=== PATIENT | female | born 1945 | race Caucasian/White ===

== ENCOUNTER 2019-08-03 08:27 | Emergency (ER) | payer MEDICARE, MEDICAID, SELFPAY ==
[2019-08-03 08:29] VITALS: BP 151/86; PULSE 123; RESP 20; TEMP 36.5; O2SAT 98; BMI 21.4
[2019-08-03 08:44] VITALS: O2SAT 98
--- NOTE | 2019-08-03 08:48 | XRR_ITS ---
PROCEDURE INFORMATION: Exam: XR Lumbosacral Spine, 2 or 3 Views Exam date and time: 08/03/2019 9:15 AM Age: 74 years old Clinical indication: Low back pain; Patient HX: Lifting boxes and hurt back; Additional info: Low back pain, nontraumatic TECHNIQUE: Imaging protocol: XR of the lumbosacral spine, 2 or 3 views. COMPARISON: CT Chest/Abdomen/Pelvis w IV* 02/12/2019 9:57 AM FINDINGS: Vertebrae: Severe diffuse degenerative disc disease reflected as severe decrease in disc space height and anterior endplate osteophytosis. No spondylolisthesis No pars defect. No fracture. Multi-level facet hypertrophic changes- Mild compression fracture T12. Previously noted. Dextrocurvature centered at L1-L2 Soft tissues: Normal. XR/XR lumbar spine 2-3V* [id number] IMPRESSION: 1. Severe diffuse degenerative disc disease. 2. Mild compression fracture T12. Previously noted.
--- NOTE | 2019-08-03 08:48 | XRR_ITS ---
PROCEDURE INFORMATION: Exam: XR Pelvis Exam date and time: 08/03/2019 9:15 AM Age: 74 years old Clinical indication: Hip pain; Bilateral; Additional info: Low back/left hip pain TECHNIQUE: Imaging protocol: XR pelvis. Views: 1 or 2 view. COMPARISON: CT Chest/Abdomen/Pelvis w IV* 02/12/2019 9:57 AM FINDINGS: Bones/joints: osseous structures of the pelvis without an acute process. rami are intact. Sacroiliac joints without separation/diastases/fracture. Iliac bones unremarkable/noncontributory Mild degenerative changes within the hips Degenerative changes within the visualized portions of the caudal aspect of the lumbar spine. Mild. Soft tissues: Unremarkable. XR/XR pelvis 1-2V* [id number] IMPRESSION: No acute process. Mild degenerative changes within the hips and lumbar spine.
--- NOTE | 2019-08-03 08:49 | ED_ITS ---
HPI - Back Pain/Injury General: Chief Complaint: Back Pain/Injury Stated Complaint: Back Pain Time Seen by Provider: 08/03/19 08:43 History of Present Illness: HPI Narrative: Luz Marina is a 74-year-old white female who states on or Saturday of last week she was going up and down the stairs multiple times carrying some photo albums and she thinks she may have aggravated her lower back. She states she's been taking tramadol and Tylenol without relief of her pain. She also some mild pain in her left hip that's worse when she moves her legs to stand up. She denies any known history of sciatica. Denies any falls or trauma. No loss of bowel or bladder control. No saddle paresthesia. Denies any back surgeries in the past. No dysuria or hematuria. Associated symptoms: Deny abdominal pain, dysuria, fever(s), nausea or vomiting Review of Systems Const: Denies: fever Eyes: Denies: change in vision Card: Denies: chest pain Resp: Denies: shortness of breath or productive cough GI: Denies: abdominal pain, nausea or vomiting : Denies: painful urination Musc: Reports: back pain; Denies: neck pain or extremity pain Skin/Breast: Denies: rash Neuro: Denies: headache, numbness in extremities or weakness in extremities Psych: Denies: depression PFSH ED PFSH: Statuses (acute, chronic, etc) shown below reflect problem list status as previously entered and may not be historically accurate Social History Smoking and tobacco status: never smoked Physical Exam Const: COMMON NORMALS: no apparent distress, average body habitus and oriented x3 HENMT: COMMON NORMALS: normocephalic HEAD & SCALP: normocephalic Eye: COMMON NORMALS: PERRL, EOMs intact bilaterally and conjunctivae normal CONJUNCTIVA: Yes conjunctivae normal PUPIL: Yes PERRL Neck/C-Spine: COMMON NORMALS: full ROM and supple Chest: COMMONS NORMALS: inspection of chest normal Resp: COMMON NORMALS: normal respiratory effort EFFORT & INSPECTION: Yes able to speak in complete sentences Cardio: COMMON NORMALS: regular rate and regular rhythm RATE: regular rate RHYTHM: regular rhythm GI: COMMON NORMALS: normal to inspection, nondistended, normoactive bowel sounds Back/Pelvis: BACK IMAGE (FEMALE): 1. pain more on this side when she tries to stand. Extremity: COMMON NORMALS: normal to inspection, full ROM and normal capillary refill Neuro: COMMON NORMALS: oriented x3, moves all extremities, no focal motor deficits and no sensory deficits noted Skin: COMMON NORMALS: no rashes or lesions noted GENERAL SKIN EXAM: no rashes or lesions noted Course ED course: Patient ordered IM decadron. Awaiting Xrays. Patient xrays are negative. Will discharge home on diclofenac for a few day. Vital Signs: Vital signs: Vital Signs Temperature 97.7 F 08/03/19 08:29 Pulse Rate 123 H 08/03/19 08:29 Respiratory Rate 20 H 08/03/19 08:29 Blood Pressure 151/86 08/03/19 08:29 Pulse Oximetry 98 08/03/19 08:44 MDM - Back Pain/Injury Imaging Data^: Other Xray: Attestation: I personally reviewed and interpreted this imaging study as follows: My impression: Pelvis xray shows not fracture or dislocation. Other Imaging: Attestation: I personally reviewed and interpreted this imaging study as follows: My impression: Lumbar spine xray shows moderate scoliosis but no obvious fracture. Discharge Plan Discharge Patient Disposition: Home, Self-Care Clinical Impression: Strain of lumbar region Qualifiers: Encounter type: initial encounter Qualified Code(s): S39.012A - Strain of muscle, fascia and tendon of lower back, initial encounter Condition: Stable Prescriptions: New diclofenac sodium 50 mg tablet,delayed release (DR/EC) 50 mg PO DAILY Qty: 15 RF: 0 No Action vitamin E 1,000 unit Capsule 1,000 unit PO DAILY RF: 0 diltiazem HCl 240 mg capsule,extended release 24 hr 240 mg PO DAILY RF: 0 Aspir-81 81 mg Tablet,Delayed Release (Dr/Ec) 81 mg PO DAILY RF: 0 tramadol 50 mg Tablet 50 mg PO QID PRN (Reason: Pain) RF: 0 Tylenol Extra Strength 500 mg Tablet 1,000 mg PO QID PRN (Reason: Pain) RF: 0 lisinopril 10 mg Tablet 10 mg PO QPM RF: 0 Colace 100 mg Capsule 100 mg PO DAILY PRN (Reason: Constipation) RF: 0 vitamin B complex Tablet 1 tab PO DAILY RF: 0 Vitamin D3 1,000 unit Capsule 1,000 unit PO DAILY RF: 0 CoQ-10 100 mg Capsule 100 mg PO DAILY RF: 0 Lyrica 50 mg Capsule 50 mg PO BID RF: 0 omeprazole 20 mg Tablet,Delayed Release (Dr/Ec) 20 mg PO DAILY RF: 0 Artificial Tears (PF) 0.1-0.3 % [place] 2 drp ophthalmic (eye) TID PRN (Reason: UNKNOWN) RF: 0 Repatha Syringe 140 mg/mL Syringe See Rx Instructions .ROUTE .COMPLEX RF: 0 Referrals: Saeed Currie MD [Primary Care Provider] - Discharge Diet: Usual diet Discharge Activity: Limit activity as instructed Patient Instructions: Low Back Strain (ED) Activity Restrictions/Additional Instructions: Drink plenty of fluids. Begin taking diclofenac daily as directed. Take with food. Continue your home medications as directed. No heavy lifting or golfing for 1 week. Follow up with your family doctor in 3-5 days. Return if any problems. Coding Level of Care Code ED Chip Silo Tender for Maximilian Fwd Exam Problem Focused
[2019-08-03] MEDS: dexamethasone 10 mg/mL INJ IM (09:20)
[2019-08-03 10:19] VITALS: BP 123/82; PULSE 99; RESP 16; O2SAT 96
== END 2019-08-03 10:20 | disposition home or self-care (01) ==
PROVIDERS: Emergency Provider Physician Assistant; Family Provider Family Medicine; PCP Family Medicine
DX: S39.012A Strain of muscle, fascia and tendon of lower back, initial encounter (principal); X50.0XXA Overexertion from strenuous movement or load, initial encounter
CPT/HCPCS: 72100; 72170; 96372; 99281; J1100

== ENCOUNTER 2019-08-08 08:18 | Emergency (ER) | payer MEDICARE, MEDICAID, SELFPAY ==
[2019-08-08 08:22] VITALS: BP 142/85; PULSE 126; RESP 20; TEMP 36.4; O2SAT 98; BMI 21.4
--- NOTE | 2019-08-08 08:30 | ED_ITS ---
Entered by Tricia Nicole, acting as scribe for Aug 08, 2019 08:18 HPI - Back Pain/Injury General: Chief Complaint: Back Pain/Injury Stated Complaint: back pain Time Seen by Provider: 08/08/19 08:29 Source: patient and family Mode of arrival: ambulatory Limitations: no limitations History of Present Illness: HPI Narrative: 74 yo female presents with low back pain. pt states this started 1- 2 weeks ago but worsened last night. pt states she has cancer and her back normally hurts but she feels like she messed it up by lifting photo albums. pt stated the pain radiates to bilater legs. pt denies any other symptoms at this time. MD elicited complaint: back pain and back injury Pertinent past history: prior back pain Onset (ago): day(s) (1-2 weeks) Timing: constant Severity: moderate Quality: sharp Location: right lower back and left lower back Radiation: left upper leg and right upper leg Exacerbating factors: movement and walking Relieving factors: none Context: while lifting Associated symptoms: Reports no associated symptoms; Deny abdominal pain, chills, dysuria, fever(s), nausea or vomiting Work related injury: No Review of Systems General: Reports: 10 or more systems reviewed and unremarkable except in HPI and below Const: Denies: fever, chills, body aches or change in appetite Eyes: Denies: blurry vision or eye discomfort ENMT: Denies: throat pain or dental pain Card: Denies: chest pain Resp: Denies: shortness of breath GI: Denies: abdominal pain, nausea, vomiting or diarrhea : Denies: painful urination Musc: Denies: neck pain Skin/Breast: Denies: rash Neuro: Denies: headache Psych: Denies: depression Jordi/Lymph: Denies: easy bruising All/Imm: Denies: hives PFSH ED PFSH: Statuses (acute, chronic, etc) shown below reflect problem list status as previously entered and may not be historically accurate Medical History (Updated 08/08/19 @ 09:44 by Lulú Maier MD) History of breast cancer (Acute) History of colon cancer (Acute) Social History Smoking and tobacco status: never smoked Physical Exam Const: COMMON NORMALS: no apparent distress, oriented x3 and healthy appearing HENMT: COMMON NORMALS: normocephalic and head/scalp atraumatic HEAD & SCALP: normocephalic and atraumatic Eye: COMMON NORMALS: PERRL and EOMs intact bilaterally PUPIL: Yes PERRL Neck/C-Spine: COMMON NORMALS: full ROM and supple Chest: COMMONS NORMALS: inspection of chest normal and palpation of chest normal Resp: COMMON NORMALS: normal respiratory effort, no retractions, no use of accessory muscles and clear to auscultation bilaterally AUSCULTATION: clear to auscultation bilaterally Cardio: COMMON NORMALS: regular rate, regular rhythm and no murmurs RATE: regular rate RHYTHM: regular rhythm GI: COMMON NORMALS: normal to inspection, nondistended, normoactive bowel sounds, soft to palpation, non-tender and no masses PALPATION: Yes soft Neuro: COMMON NORMALS: oriented x3, moves all extremities and no focal motor deficits Psych: COMMON NORMALS: mental status grossly normal, thought process normal and cooperative THOUGHT PROCESS: normal thought process Skin: COMMON NORMALS: no rashes or lesions noted and no wounds GENERAL SKIN EXAM: no rashes or lesions noted Course Vital Signs: Vital signs: Vital Signs Temperature 97.2 F L 08/08/19 10:03 Pulse Rate 105 H 08/08/19 10:03 Respiratory Rate 18 08/08/19 10:03 Blood Pressure 128/74 08/08/19 10:03 Pulse Oximetry 96 08/08/19 10:03 MDM - Back Pain/Injury MDM Narrative: Medical decision making narrative: Patient presents here with back pain likely from muscle strain. CT does show some degenerative disc disease. She has no signs of cord compression here with no urinary or retention or urinary incontinence. She has no saddle anesthesia. She is able to ambulate. She has an appointment with Dr. Richards on and is to follow then. We will place her on steroids. She is to follow-up with primary care doctor as well. Informed her if she has worsening pain or any numbness or difficulty urinating she is to return immediately. She understands and agrees to this plan. Discharge Plan Discharge Patient Disposition: Home, Self-Care Clinical Impression: Lumbar back pain Condition: Stable Prescriptions: [place] 5-325 mg tablet 1 tab PO Q6H PRN (Reason: pain) Qty: 14 RF: 0 Robaxin-750 750 mg tablet 750 mg PO Q6H Qty: 30 RF: 0 prednisone 10 mg tablets,dose pack See Rx Instructions .ROUTE .COMPLEX Qty: 21 RF: 0 No Action vitamin E 1,000 unit Capsule 1,000 unit PO DAILY RF: 0 diltiazem HCl 240 mg capsule,extended release 24 hr 240 mg PO DAILY RF: 0 aspirin [Aspir-81] 81 mg Tablet,Delayed Release (Dr/Ec) 81 mg PO DAILY RF: 0 tramadol 50 mg Tablet 50 mg PO QID PRN (Reason: Pain) RF: 0 acetaminophen [Tylenol Extra Strength] 500 mg Tablet 1,000 mg PO QID PRN (Reason: Pain) RF: 0 lisinopril 10 mg Tablet 10 mg PO QPM RF: 0 docusate sodium [Colace] 100 mg Capsule 100 mg PO DAILY PRN (Reason: Constipation) RF: 0 vitamin B complex Tablet 1 tab PO DAILY RF: 0 cholecalciferol (vitamin D3) [Vitamin D3] 1,000 unit Capsule 1,000 unit PO DAILY RF: 0 coenzyme Q10 [CoQ-10] 100 mg Capsule 100 mg PO DAILY RF: 0 pregabalin [Lyrica] 50 mg Capsule 50 mg PO BID RF: 0 omeprazole 20 mg Tablet,Delayed Release (Dr/Ec) 20 mg PO DAILY RF: 0 Artificial Tears (PF) 0.1-0.3 % Dropperette 2 drp ophthalmic (eye) TID PRN (Reason: UNKNOWN) RF: 0 Repatha Syringe 140 mg/mL Syringe See Rx Instructions .ROUTE .COMPLEX RF: 0 diclofenac sodium 50 mg tablet,delayed release (DR/EC) 50 mg PO DAILY Qty: 15 RF: 0 Discharge Orders: Discharge Order (Routine); Ordered 08/08/19 Ordered By: Lulú Maier Referrals: Messi Barrios MD [Physician] - 4-7 days Saeed Currie MD [Primary Care Provider] - Discharge Diet: Advance as tolerated Discharge Activity: Increase activity as tolerated Patient Instructions: Acute Low Back Pain (ED) Discharge Date/Time: 08/08/19 10:04 Coding Level of Care Code ED Direct Mail Coordinator for Chg Fwd Exam Problem Focused The documentation recorded by the Corey morris Bridget Annette, accurately reflects the service I personally performed and the decisions made by Darrion brambila Korby, MD Aug 08, 2019 08:18
--- NOTE | 2019-08-08 08:35 | CTR_ITS ---
PROCEDURE INFORMATION: Exam: CT Lumbar Spine Without Contrast Exam date and time: 08/08/2019 8:36 AM Age: 74 years old Clinical indication: Low back pain TECHNIQUE: Imaging protocol: Computed tomography images of the lumbar spine without contrast. Total DLP: 1790.27 mGy-cm Radiation optimization: All CT scans at this facility use at least one of these dose optimization techniques: automated exposure control; mA and/or kV adjustment per patient size (includes targeted exams where dose is matched to clinical indication); or iterative reconstruction. COMPARISON: CR XR lumbar spine 2-3V* [id number] 08/03/2019 9:01 AM FINDINGS: Vertebrae: There is an old T12 compression fracture. Discs/Spinal canal/Neural foramina: There are advanced multilevel degenerative changes including disc space narrowing, vacuum disc phenomena, facet arthropathy, and hypertrophic spur formation, all of which contribute to multilevel spinal canal and neural foraminal stenosis. Vasculature: There are calcified atherosclerotic changes of the aorta. CT/CT lumbar spine wo con* [id number] IMPRESSION: There are advanced multilevel degenerative changes including disc space narrowing, vacuum disc phenomena, facet arthropathy, and hypertrophic spur formation, all of which contribute to multilevel spinal canal and neural foraminal stenosis. Full evaluation of the intervertebral discs and intraspinal contents is limited with CT imaging. Clinical findings will determine the need for further evaluation with MRI imaging. Radiation Dose CTDIVOL = (mGy): DLP = 1790.27 (mGy-cm)
--- NOTE | 2019-08-08 08:35 | CTR_ITS ---
PROCEDURE INFORMATION: Exam: CT Thoracic Spine Without Contrast Exam date and time: 08/08/2019 8:36 AM Age: 74 years old Clinical indication: Pain in thoracic spine; Additional info: Back pain TECHNIQUE: Imaging protocol: Computed tomography images of the thoracic spine without contrast. Total DLP: 1046.07 mGy-cm Radiation optimization: All CT scans at this facility use at least one of these dose optimization techniques: automated exposure control; mA and/or kV adjustment per patient size (includes targeted exams where dose is matched to clinical indication); or iterative reconstruction. COMPARISON: No relevant prior studies available. FINDINGS: Vertebrae: There is an old T12 compression fracture. Discs/Spinal canal/Neural foramina: No spinal canal stenosis. Soft tissues: Unremarkable. Vasculature: There are calcified atherosclerotic changes of the aorta. Lymph nodes: There are scattered borderline enlarged enlarged mediastinal lymph nodes. Heart: There are atherosclerotic changes of the coronary arteries. CT/CT thoracic spin wo con* [id number] IMPRESSION: No acute findings are identified. Please see above report for incidental findings. Radiation Dose CTDIVOL = (mGy): DLP = 1046.07 (mGy-cm)
[2019-08-08] MEDS: predniSONE 20 mg Tablet 60 MG PO (08:41)
[2019-08-08 08:42] VITALS: RESP 18
[2019-08-08] MEDS: morphine 4 mg/mL SDV 1 mL IM (08:42)
[2019-08-08 09:29] VITALS: BP 128/74; PULSE 107; RESP 18; O2SAT 95
[2019-08-08 10:03] VITALS: BP 128/74; PULSE 105; RESP 18; TEMP 36.2; O2SAT 96
--- NOTE | 2019-08-11 11:15 | DCPLANNER ---
group sales manager had message to schedule a follow up appointment for patient with Dr. Barrios. group sales manager called [facility], spoke with Afia, gave clinic patients information. group sales manager was told that patients information would be printed and given to Kavin. Clinic will call child support case officer and patient with appointment information.
--- NOTE | 2019-08-14 09:27 | DCPLANNER ---
Kavin from Dr. Zamora office called case work aide and informed case work aide that a follow up appointment has been scheduled for Saturday, September 28, 2019 at 9:00. Clinic will call patient with appointment information.
--- NOTE | 2019-10-09 15:17 | DCPLANNER ---
Patient cancelled appointment scheduled for 09.28.[address] Zamora office.
== END 2019-08-08 10:04 | disposition home or self-care (01) ==
PROVIDERS: Emergency Provider Emergency Medicine; Family Provider Family Medicine; PCP Family Medicine
DX: M54.5 Low back pain (principal); Z79.82 Long term (current) use of aspirin; Z85.3 Personal history of malignant neoplasm of breast; Z85.038 Personal history of other malignant neoplasm of large intestine
CPT/HCPCS: 72128; 72131; 96372; 99281; 99283; E0114; J2270; J7512

== ENCOUNTER 2019-08-11 10:08 | Outpatient (CLI) | payer MEDICARE, MEDICAID, SELFPAY ==
[2019-08-11 11:18] LABS: Eosinophils % 0.3 %; Hematocrit 36.7 % (37.0-47.0); Hemoglobin 11.2 g/dL (11.5-15.3); Lymphocytes # 0.8 10^3/uL (0.8-4.8); Mean Corpuscular HGB Conc 30.5 g/dL (30.0-36.0); Mean Corpuscular Hemoglobin 27.1 pg (28.0-34.0); Mean Corpuscular Volume 88.9 fL (81-99); Monocytes % 33.4 %; Neutrophils # 0.9 10^3/uL (1.8-7.7); Neutrophils % 31.5 %; Nucleated Red Blood Cells # 0.1 /100WBC; Nucleated Red Blood Cells % 2.4 %; Platelet Count 117 10^3/cmm (130-400); Red Blood Count 4.13 10^6/uL (4.1-5.3); Red Cell Distribution Width 20.4 % (12.1-15.1); White Blood Count 2.9 10^3/uL (4.0-10.0)
[2019-08-11 11:32] LABS: Alanine Aminotransferase 15 U/L (0-33); Albumin Level 3.8 g/dL (3.5-5.2); Alkaline Phosphatase 123 IU/L (35-105); Aspartate Amino Transferase 8 U/L (0-32); Blood Urea Nitrogen 17 mg/dL (8-23); Carbon Dioxide 26 mmol/L (22-29); Chloride 104 mmol/L (98-107); Ferritin 399 ng/mL (15-150); Globulin 4.2 g/dL (1.3-4.6); Glucose 113 mg/dL (74-106); Iron 167 ug/dL (37-145); Percent Saturation 66.2 % (20-50); Sodium 143 mmol/L (136-145); Total Bilirubin 0.4 mg/dL (0.15-1.2); Total Iron Binding Capacity 252 mcg/dl; Unsaturated Iron Binding 85 ug/dL (112-347)
== END 2019-08-11 10:09 | disposition home or self-care (01) ==
LOC: ONCMED 10:09
PROVIDERS: Family Provider Family Medicine; PCP Family Medicine; Visit Provider Internal Medicine Medical Oncology
DX: D50.8 Other iron deficiency anemias (principal)
CPT/HCPCS: 80053; 82728; 83540; 83550; 85025

== ENCOUNTER 2019-08-13 09:01 | Outpatient (CLI) | payer MEDICARE, MEDICAID, SELFPAY ==
--- NOTE | 2019-08-16 09:42 | ONC FU_ITS ---
Dr. Richards Patient Follow-Up Note Patient: Nikky Bañuelos Unit #: [id number]: [id number] Dicatated By: González Richards M.D.Date of Visit:Aug 13, 2019 Onc Med Follow-up/Prog Note Chief Complaint: Neutropenia/anemia. History of Present Illness: This is a 74 year-old woman with multiple malignancies. She also is being followed for moderately severe neutropenia and mild anemia. She was treated for endometrioid carcinoma the left ovary in 1992, for infiltrating ductal carcinoma of the left breast in 2006, and for invasive cancer of the right breast in 2013. With all 3 malignancies, she was given adjuvant chemotherapy, and she also received radiation to the left breast. 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 She had stage I disease (T2, N0, M0), and she received no further treatment. On a follow-up visit with Dr. Currie in December 2018 she was noted to have moderately severe neutropenia. The available records included a CBC from 12/16/2018 which showed hemoglobin mildly decreased at 11.0 g with hematocrit 36.4%. The red cell indices were normal. The white blood cell count was 3700. The differential showed 28% neutrophils, 63% lymphocytes, and 9% monocytes. The platelet count was 183,000. I had seen her for a follow-up visit on 01/05/2019. Her CBC at that time showed borderline hemoglobin at 12.0 g with hematocrit 37%. The red cell indices were borderline low. The white blood cell count was 5200 with absolute neutrophil count 1400. The platelet count was normal at 200,000. Sedimentation rate was normal at 12 mm/hour. Comprehensive metabolic profile was unremarkable except for slightly elevated alkaline phosphatase at 126/105 IU/L. B12 was normal at 631 pg/mL. The serum iron studies showed low transferrin saturation at 13%. Ferritin also was relatively low at 40.0 ng/mL. JACOB screen was positive at a 1:40 titer. With those findings, I had opted to just continue with observation/expectant management. Her medical history includes hysterectomy with right salpingo-oophorectomy for benign disease in 1988. She was diagnosed with endometrioid carcinoma of the left ovary in 1992. Her tumor measured 6 cm and was noted to invade the adjacent sigmoid colon. She underwent complete surgical resection which included left oophorectomy and resection of the involved portion of sigmoid colon. She was given adjuvant chemotherapy with 6 cycles of carboplatin/cyclophosphamide, completed in December 1993. In 2006 she was confirmed to have grade 3 infiltrating ductal carcinoma of the left breast, stage IIA (T2, N0, M0), ER/UT negative and HER-2/sachi negative. Her treatment included excisional biopsy followed by left axillary lymph node dissection in September 2006. She was given adjuvant chemotherapy with 6 cycles of FEC, completed in January 2007. She was then given radiation to the left breast, completed in March 2007 to a total dose of 6000 cGy. In October 2013 her mammogram showed a focal asymmetry in the posterior upper outer right breast and in the lateral inferior right breast. Further mammographic studies and ultrasound showed both lesions to be suspicious. She underwent needle localization biopsy of both lesions on 11/05/2013. The inferior/lateral lesion showed microscopic foci of nuclear grade 2/3 ductal carcinoma in situ. There was tumor present at the inked margin of resection. The upper outer quadrant lesion showed microscopic foci of metastatic breast carcinoma in 2 of 4 parenchymal lymph nodes. I had initially seen her for the right breast cancer in December 2013. I felt that the time that she probably would require mastectomy. She was referred to [facility] for second opinion evaluation. She ultimately did undergo right modified radical mastectomy at [facility] in [place] on 01/27/2014. Pathology on the breast showed evidence of scar with foreign body reaction, but no residual DCIS or invasive carcinoma. However, there was involvement with metastatic carcinoma in 8 of 14 axillary lymph nodes. The largest metastatic focus measured 1.4 cm with focal extracapsular extension identified. There was significant variation in the morphologic appearance and immunohistochemical staining pattern within the lymph nodes, with one showing features of metastasis from primary non-small cell lung cancer and the others consistent with metastatic breast cancer. The breast prognostic profile showed 0% staining for both estrogen and progesterone receptors. The HER-2/sachi was 2+ by IHC, but negative by FISH with amplification ratio 1.33. Staging PET/CT showed postoperative changes involving the right axilla and chest wall, but no evidence of residual regional metastatic disease or distant metastases. She was given adjuvant chemotherapy with 4 cycles of Adriamycin/cyclophosphamide, completed in May 2014. Her other medical illnesses include hypertension, hyperlipidemia, GERD, degenerative arthritis, fibromyalgia, and anxiety/depression. Her other previous surgeries included tubal ligation in 1978, appendectomy 1963, and tonsillectomy 1955. She is a nonsmoker. She has a strong family history for cancer, which includes both breast cancer and colon cancer. INTERIM HISTORY: Following her visit on 02/09/2019 she began oral iron supplementation with ferrous sulfate. She also was found to have a positive stool FIT. Her restaging CT scans of the chest, abdomen, and pelvis on 02/12/2019 showed no convincing evidence for recurrent or metastatic disease. She was not able to tolerate the oral iron, because it made her sick to her stomach, and she was then given parenteral iron replacement with a single infusion of Injectafer on 05/13/2019. She is seen for a scheduled visit. Her main complaint is that she has developed severe pain in the lower back on the left side. It started several weeks ago after she had been caring heavy photo albums. She was seen in the emergency room on 08/03/2019 and again on 08/08/2019. She is being managed symptomatically, but that has included a course of steroid therapy with prednisone. CT of the lumbar spine on 08/08/2019 showed advanced multilevel degenerative changes with disc space narrowing and associated multilevel spinal canal and neural foraminal stenosis. There was no evidence of metastatic disease. Thoracic spine CT showed no acute findings. At this point she continues to have really bad pain in her left lower back, and she also has tingling down her left leg. The pain does get worse with coughing. She has very limited activity. ECOG score is 3. Appetite had been down, but it is getting better. She does not have fever. She does have some hot flashes and sweating. She has shortness of breath with effort, and she does have some cough. She does not complain of chest pain. She says her stomach feels yucky. She has no other GI complaints. She does have some urinary frequency and urgency. She currently has no other joint or bone pain. She does have numbness/tingling in her feet, which is chronic. Medications: Acetaminophen 1 Tablet (of 500 mg) Oral, Aspirin 1 Tablet (of 81 mg) Oral daily, B Complex 1 Tablet Oral daily, Cartia XT 1 Capsule (of 240 mg) Capsule SR 24 HR Oral daily, Cholecalciferol 1 Tablet (of 2000 Units) Oral daily, Co Q-10 1 Capsule (of 20 mg) Oral daily, E600 1 Capsule (of 670 Units) Oral daily, Lisinopril 1 Tablet (of 10 mg) Oral daily, Lyrica 1 Capsule (of 50 mg) Oral b.i.d., Multi-Vitamin Daily Tablet Oral daily, Omeprazole 1 (20 mg) Capsule Delayed Release Oral daily, predniSONE 1 Tablet (of 2.5 mg) Oral b.i.d., Repatha 1 (140 mg) Subcutaneous q 2 weeks, Robaxin 1 Tablet (of 500 mg) Oral q 6 hours PRN, TraMADol HCl 1 (50 mg) Tablet Oral PRN Allergies: Crestor, Gabapentin, Pravastatin Sodium, and Zetia. Review of Systems: Constitutional - Her activity lately has been very limited due to back pain. Her appetite also has been down, but that is getting better. She has not had fever. She does have hot flashes and sweating. ECOG score is 3, ENMT - No sinus congestion/drainage. No mouth sores. No sore throat or difficulty swallowing, Hematologic/Lymphatic - She has some bruising, Respiratory - She has shortness of breath with effort, and she has had some cough. No pleuritic pain or hemoptysis, Cardiovascular - No angina pain. No palpitations, Gastrointestinal - Her stomach feels yuchy. No heartburn or acid reflux. No diarrhea or constipation. No blood in the stool or black stools, Genitourinary (F) - No dysuria or hematuria. She has urinary frequency and urgency. No incontinence, Musculoskeletal - She has in her lower back on the left side. She currently has no other joint or bone pain, Integumentary - No skin complications, Neurologic - No headache or dizziness. She has tingling going down her left leg. She also has numbness and tingling in her feet, Psychiatric - She has anxiety. She is having difficulty sleeping due to the pain. Vital Signs: Performed on Aug 13, 2019 09:11 Height - 69.00 in Weight - 142.2 lbs (LOW) BSA - 1.79 sq.m BMI - 21.00 Temperature - 98.7 F Pulse - 123 /min (HIGH) Respiration - 22 /min BP - 131/78 mm(hg) O2 Sat - 97 % Pain - 10 Physical Examination: Constitutional - She appears to be in significant discomfort, Eyes - Sclerae nonicteric. Conjunctivae clear, ENMT - No lesions noted in the oral cavity, Hematologic/Lymphatic - No cervical, clavicular, or axillary adenopathy, Respiratory - Lungs are clear with good air movement bilaterally, Cardiovascular - Heart rhythm is regular. She has a mild tachycardia. There is no murmur, gallop, or rub noted, Abdomen - Soft. Liver and spleen are not enlarged. There is no abdominal mass or ascites noted and there is no inguinal adenopathy, Extremities - No edema, Neurologic - There are no sensory of motor deficits noted, but there is hyper-reflexia at the left knee. Lab/Imaging: Her CBC from 08/11/2019 showed hemoglobin 11.2 g, white blood cell count 2900, and platelet count 117,000. Comprehensive metabolic profile showed normal renal function with BUN 17 and creatinine 0.7 mg/dL. The serum iron was elevated at 167 mcg/dL with transferrin saturation 66%. Ferritin was also high at 399 ng/mL. Alkaline phosphatase was slightly elevated 123 IU/L, but similar to previous studies. Impression: 1. Patient with moderately severe neutropenia. The cause is uncertain, but I suspect it is autoimmune. She is at risk, though, for myelodysplastic syndrome, as she has a history of multiple prior malignancies, and she has received adjuvant chemotherapy on 3 different occasions. 2. She has been mildly anemic with low transferrin saturation and ferritin, consistent with iron deficiency. Her history includes: 3. Endometrioid carcinoma of the left ovary, stage IIB, with no recurrence following surgical resection in 1992 and adjuvant chemotherapy with 6 cycles of carboplatin/cyclophosphamide. 4. Grade 3 infiltrating ductal carcinoma of the left breast, stage IIA, ER/UT negative and HER-2/sachi negative, with no recurrence following lumpectomy/axillary lymph node dissection, adjuvant chemotherapy with 6 cycles of FEC, and radiation to the left breast to 6000 cGy, completed in March 2007. 5. Right breast cancer which included DCIS in the inferolateral breast, microscopic foci of metastatic breast carcinoma involving 2 of 4 upper outer quadrant intraparenchymal lymph nodes, and metastatic involvement in 8/14 lymph nodes, ER/UT negative and HER-2/sachi negative. Treatment included right modified radical mastectomy on 01/27/2014 followed by adjuvant chemotherapy with 4 cycles of cyclophosphamide/docetaxel, completed in May 2014. 6. 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 7. She has a strong history of cancer, including breast cancer and colon cancer. Her other medical illnesses include: 8. Hypertension. 9. Hyperlipidemia. 10. GERD. 11. Degenerative arthritis/fibromyalgia. 12. Peripheral neuropathy. 13. Anxiety/depression. In December 2018 she was found to have moderately severe neutropenia. It has been persistent, though she has not been symptomatic with it. I had suspected that it was autoimmune, as she also had a positive JACOB screen. She also has been mildly anemic, and initially it appeared to be due to iron deficiency. However, it has not corrected despite parenteral iron replacement. She also comes in now with recent onset of severe pain in the lower back on the left side. This may be due to degenerative disease and a ruptured disc, as there is definitely a radicular component. I am still concerned about the possibility of metastatic disease. Plan: She will be scheduled for MRI of the lumbar spine, and she will have further evaluation for the back pain as indicated. As she is in significant discomfort, she will be given 4 mg of morphine by subcutaneous injection, and she will be given a prescription for MSIR. As her blood counts are not improving, I am also anticipating that she will at some point need to undergo bone marrow aspiration/biopsy. Signed By: González Richards M.D. <<Signature on File>>
== END 2019-08-13 09:02 | disposition home or self-care (01) ==
LOC: ONCMED 09:03
PROVIDERS: Family Provider Family Medicine; PCP Family Medicine; Visit Provider Internal Medicine Medical Oncology
DX: D70.9 Neutropenia, unspecified (principal); D50.9 Iron deficiency anemia, unspecified; M54.5 Low back pain; I10 Essential (primary) hypertension; E78.5 Hyperlipidemia, unspecified; K21.9 Gastro-esophageal reflux disease without esophagitis; M19.90 Unspecified osteoarthritis, unspecified site; M79.7 Fibromyalgia; F41.8 Other specified anxiety disorders; G62.9 Polyneuropathy, unspecified; Z79.82 Long term (current) use of aspirin; Z79.52 Long term (current) use of systemic steroids; Z79.891 Long term (current) use of opiate analgesic; Z79.899 Other long term (current) drug therapy; Z85.038 Personal history of other malignant neoplasm of large intestine; Z85.3 Personal history of malignant neoplasm of breast; Z92.3 Personal history of irradiation; Z92.21 Personal history of antineoplastic chemotherapy; Z85.43 Personal history of malignant neoplasm of ovary; Z90.11 Acquired absence of right breast and nipple; Z80.0 Family history of malignant neoplasm of digestive organs; Z80.3 Family history of malignant neoplasm of breast
CPT/HCPCS: 99214

== ENCOUNTER 2019-08-14 09:08 | Outpatient (CLI) | payer MEDICARE, MEDICAID, SELFPAY ==
--- NOTE | 2019-08-14 09:15 | MRR_ITS ---
PROCEDURE INFORMATION: Exam: MR Lumbar Spine Without and With Contrast. Exam date and time: 08/14/2019 10:00 AM Age: 74 years old Clinical indication: Low back pain; Prior surgery; Surgery date: 6+ months; Patient HX: HX breast cancer, radicular pain left lower back left leg tingling numbness for 2 weeks; Additional info: Breast CA; Radicular pain lt lower back/left leg; Tingling/num TECHNIQUE: Imaging protocol: Multiplanar magnetic resonance images of the lumbar spine without and with intravenous contrast. Contrast material: PROHANCE; Contrast volume: 13 ml; Contrast route: IV; COMPARISON: CT lumbar spine wo con* [id number] 08/08/2019 9:14 AM FINDINGS: Vertebrae: No acute compression fracture is seen. A chronic T12 compression fracture is noted. Mild T12 vertebral body height loss is present. There is a small chronic superior endplate compression fracture along the right aspect of L3 vertebral body. There is no significant retropulsion into the spinal canal. There is mild retrolisthesis of L1 on L2, L2 on L3, and L3 on L4. Moderate dextroconvex scoliosis of the lumbar spine is also present. Bone marrow signal is heterogeneous but within normal limits. Degenerative bone marrow edema is present along L1-L2 and L2-L3 endplates. Spinal cord: The conus medullaris terminates at the L1-L2 level. There is no evidence of arachnoiditis or cauda equina compression. L1-L2: There is moderate circumferential disc bulging and facet arthropathy. Increased T2 signal within the disc is likely degenerative. There is minimal spinal canal stenosis, moderate narrowing of the left subarticular recess, moderate left neural foraminal narrowing, and minimal right neural foraminal narrowing. L2-L3: Moderate edema, inflammation, and enhancement is present in the left posterior paraspinous musculature near the L2-L3 level. Enhancement extends around the left L2-L3 facets. These findings may represent degenerative facet arthropathy, but infectious septic facet arthritis is difficult to exclude. This does not appear to represent malignancy or metastatic disease. There is moderate circumferential disc bulging, moderate facet arthropathy, and thickening of the ligamentum flavum. This is causing mild/moderate spinal canal stenosis, mild narrowing of the right subarticular recess, severe narrowing of the left subarticular recess, moderate/severe left neural foraminal narrowing, and mild right neural foraminal narrowing. L3-L4: There is moderate circumferential disc bulging, thickening of the ligamentum flavum, and facet arthropathy. This is causing mild spinal canal stenosis, severe narrowing of the right subarticular recess, moderate right neural foraminal narrowing, and mild left neural foraminal narrowing. L4-L5: There is moderate circumferential disc bulging, right foraminal and extraforaminal osteophytic ridging, thickening of the ligamentum flavum, and moderate facet arthropathy. This is causing mild/moderate spinal canal stenosis, severe narrowing of the right subarticular recess, moderate narrowing of the left subarticular recess, moderate right neural foraminal narrowing, and mild left neural foraminal narrowing. L5-S1: There is mild circumferential disc bulging and osteophytic ridging. Facet arthropathy is also noted. There is no spinal canal stenosis. Moderate bilateral neural foraminal narrowing is present. MR/MR lumbar spine wo/w con [id number] IMPRESSION: 1. Inflammation and enhancement involving the left L2-L3 facets in the surrounding posterior left paraspinous musculature. This may represent degenerative facet arthropathy, but infectious or septic facet arthritis is difficult to exclude. Clinical and laboratory correlation is recommended. 2. Marked degenerative changes of the lumbar spine as discussed above
== END 2019-08-14 09:09 | disposition home or self-care (01) ==
LOC: ONCMED 09:13
PROVIDERS: Family Provider Family Medicine; PCP Family Medicine; Visit Provider Internal Medicine Medical Oncology
DX: C50.911 Malignant neoplasm of unspecified site of right female breast (principal); M54.16 Radiculopathy, lumbar region; G62.9 Polyneuropathy, unspecified; R29.2 Abnormal reflex
CPT/HCPCS: 72158; A9579

== ENCOUNTER 2019-08-17 13:03 | Emergency (ER) | payer MEDICARE, MEDICAID, SELFPAY ==
[2019-08-17] VITALS (7 sets, daily range): BP systolic 81–96; BP diastolic 45–61; PULSE 78–119; RESP 17–19; TEMP 36.7–36.8; O2SAT 92–98; BMI 21.2
--- NOTE | 2019-08-17 15:11 | ED_ITS ---
Entered by Tricia Nicole, acting as scribe for Nitin Carty DO Aug 17, 2019 13:03 Documented by User: Lulú Maier MD 08/18/19 03:08 HPI - Back Pain/Injury General: Chief Complaint: Back Pain/Injury Stated Complaint: back pain Time Seen by Provider: 08/17/19 15:11 PFSH ED PFSH: Statuses (acute, chronic, etc) shown below reflect problem list status as previously entered and may not be historically accurate Medical History (Updated 08/18/19 @ 03:08 by Lulú Maier MD) History of breast cancer (Acute) History of colon cancer (Acute) Social History Smoking and tobacco status: never smoked Course Vital Signs: Vital signs: Vital Signs Temperature 98.3 F 08/17/19 15:11 Pulse Rate 68 08/18/19 03:40 Respiratory Rate 16 08/18/19 03:40 Blood Pressure 111/58 08/18/19 03:40 Pulse Oximetry 93 08/18/19 03:40 MDM - Back Pain/Injury MDM Narrative: Medical decision making narrative: Patient presents here with fever with MRI findings with a possible discitis with a possible abscess as well. No large abscess was noted. Patient also has acute kidney injury with elevated creatinine. We do not have any neurosurgery on-call or ICU beds patient was transferred to [facility]. Patient's been stable while here. Lab Data: Labs: Lab Results 08/17/19 08/17/19 08/17/19 Range/Units 15:15 15:29 15:29 WBC 11.5 H (4.0-10.0) 10^3/ uL RBC 3.54 L (4.1-5.3) 10^6/u L Hgb 9.4 L (11.5-15.3) g/dL Hct 30.3 L (37.0-47.0) % MCV 85.6 (81-99) fL MCH 26.6 L (28.0-34.0) pg MCHC 31.0 (30.0-36.0) g/dL RDW 20.6 H (12.1-15.1) % Plt Count 79 L (130-400) 10^3/c mm MPV 10.5 H (7.4-10.4) fL Neut % (Auto) 20.7 % Lymph % (Auto) 23.3 % [place] % (Auto) 53.7 % Eos % (Auto) 0.2 % Baso % (Auto) 0.5 % Neut # (Auto) 2.4 (1.8-7.7) 10^3/u L Lymph # (Auto) 2.7 (0.8-4.8) 10^3/u L [place] # (Auto) 6.2 H (0.2-0.9) 10^3/u L Eos # (Auto) 0.0 (0.0-0.8) 10^3/u L Baso # (Auto) 0.1 (0.0-0.1) 10^3/u L Nucleated RBC % (a uto) 1.4 % Total Counted 100 (0-100) Atypical Lymphs % 7.0 H (0-5) % Segmented Neutroph ils 25 % Band Neutrophils 6.0 % Absolute Lymphocyt es 5.9 H (1.2-3.4) 10^3/c mm Lymphocytes (Manua l) 44 % Monocytes (Manual) 17.0 % Absolute Monocytes 2.0 H (0.1-0.6) 10^3/c mm Eosinophils (Manua l) 1 % Absolute Eosinophi ls 0.1 (0.0-0.7) 10^3/c mm Nucleated RBCs 3.0 H (0-1) /100WBC Nucleated RBCs # 0.2 /100WBC Platelet Estimate Decreased L (Normal) Polychromasia Trace Poikilocytosis 1+ H Anisocytosis 2+ H Spherocytes Trace Tear Drop Cells Trace Ovalocytes 1+ H Specimen Type Sample Site ABG pH (7.35-7.45) ABG pCO2 (35-45) mmHg ABG pO2 (80.0-100.0) mmH g ABG HCO3 (22-26) mmol/L ABG O2 Saturation ABG Base Excess (-2.0-2.0) mmol/ L Saw Test A-a O2 Gradient (5-10) mmHg Hematocrit (37-47) % Hgb O2 Saturation (95-100) % Carboxyhemoglobin (0.4-20.1) %THgb Methemoglobin (0.4-1.5) % Total Hemoglobin (12-16) g/dL Ionized Calcium (1.1-1.4) mmol/L O2 Delivery Device FiO2 % Rosin Barrel Filler ID Sodium 127 L (136-145) mmol/L Potassium 3.5 (3.5-5.1) mmol/L Chloride 93 L (98-107) mmol/L Carbon Dioxide 19 L (22-29) mmol/L Anion Gap 18.5 (5-19) BUN 73 H (8-23) mg/dL Creatinine 3.8 H (0.5-0.9) mg/dL Glucose 144 H (65-115) mg/dL Lactic Acid (Sepsi s) (0.5-2.2) mmol/L Calcium 9.4 (8.5-10.5) mg/dL Total Bilirubin 0.7 (0.15-1.2) mg/dL AST 13 (0-32) U/L ALT 30 (0-33) U/L Alkaline Phosphata se 133 H (35-105) IU/L C-Reactive Protein 379.3 H (0.0-4.9) mg/L Total Protein 7.2 (6.6-8.7) g/dL Albumin 3.2 L (3.5-5.2) g/dL Globulin 4.0 (1.3-4.6) g/dL Urine Opiates Scre en Positive H (Negative) ng/mL Ur Barbiturates Sc reen Negative (Negative) ng/mL Ur Phencyclidine S crn Negative (Negative) ng/mL Ur Amphetamines Sc reen Negative (Negative) ng/mL U Benzodiazepines Scrn Negative (Negative) ng/mL Urine Cocaine Scre en Negative (Negative) ng/mL U Marijuana (THC) Screen Negative (Negative) ng/mL 08/17/19 08/17/19 Range/Units 17:15 21:56 WBC (4.0-10.0) 10^3/ uL RBC (4.1-5.3) 10^6/u L Hgb (11.5-15.3) g/dL Hct (37.0-47.0) % MCV (81-99) fL MCH (28.0-34.0) pg MCHC (30.0-36.0) g/dL RDW (12.1-15.1) % Plt Count (130-400) 10^3/c mm MPV (7.4-10.4) fL Neut % (Auto) % Lymph % (Auto) % [place] % (Auto) % Eos % (Auto) % Baso % (Auto) % Neut # (Auto) (1.8-7.7) 10^3/u L Lymph # (Auto) (0.8-4.8) 10^3/u L [place] # (Auto) (0.2-0.9) 10^3/u L Eos # (Auto) (0.0-0.8) 10^3/u L Baso # (Auto) (0.0-0.1) 10^3/u L Nucleated RBC % (a uto) % Total Counted (0-100) Atypical Lymphs % (0-5) % Segmented Neutroph ils % Band Neutrophils % Absolute Lymphocyt es (1.2-3.4) 10^3/c mm Lymphocytes (Manua l) % Monocytes (Manual) % Absolute Monocytes (0.1-0.6) 10^3/c mm Eosinophils (Manua l) % Absolute Eosinophi ls (0.0-0.7) 10^3/c mm Nucleated RBCs (0-1) /100WBC Nucleated RBCs # /100WBC Platelet Estimate (Normal) Polychromasia Poikilocytosis Anisocytosis Spherocytes Tear Drop Cells Ovalocytes Specimen Type Arterial Sample Site Radial, left ABG pH 7.39 (7.35-7.45) ABG pCO2 31.9 L (35-45) mmHg ABG pO2 73.7 L (80.0-100.0) mmH g ABG HCO3 19.4 L (22-26) mmol/L ABG O2 Saturation 95.9 ABG Base Excess -4.7 L (-2.0-2.0) mmol/ L Saw Test Pos A-a O2 Gradient 35.0 H (5-10) mmHg Hematocrit 33.6 L (37-47) % Hgb O2 Saturation 93.7 L (95-100) % Carboxyhemoglobin 0.8 (0.4-20.1) %THgb Methemoglobin 1.5 (0.4-1.5) % Total Hemoglobin 11.0 L (12-16) g/dL Ionized Calcium 1.2 (1.1-1.4) mmol/L O2 Delivery Device None FiO2 21.0 % Rosin Barrel Filler ID glc Sodium 133.0 (136-145) mmol/L Potassium 3.6 (3.5-5.1) mmol/L Chloride (98-107) mmol/L Carbon Dioxide (22-29) mmol/L Anion Gap (5-19) BUN (8-23) mg/dL Creatinine (0.5-0.9) mg/dL Glucose 127.0 H (65-115) mg/dL Lactic Acid (Sepsi s) 0.7 (0.5-2.2) mmol/L Calcium (8.5-10.5) mg/dL Total Bilirubin (0.15-1.2) mg/dL AST (0-32) U/L ALT (0-33) U/L Alkaline Phosphata se (35-105) IU/L C-Reactive Protein (0.0-4.9) mg/L Total Protein (6.6-8.7) g/dL Albumin (3.5-5.2) g/dL Globulin (1.3-4.6) g/dL Urine Opiates Scre en (Negative) ng/mL Ur Barbiturates Sc reen (Negative) ng/mL Ur Phencyclidine S crn (Negative) ng/mL Ur Amphetamines Sc reen (Negative) ng/mL U Benzodiazepines Scrn (Negative) ng/mL Urine Cocaine Scre en (Negative) ng/mL U Marijuana (THC) Screen (Negative) ng/mL Discharge Plan Discharge Patient Disposition: Xfer Other Clinical Impression: Acute kidney injury, Discitis of lumbar region Condition: Stable Referrals: Saeed Currie MD [Primary Care Provider] - Discharge Date/Time: 08/18/19 03:41 Coding Level of Care Code ED Pattern Vault Clerk for Chg Fwd Exam Problem Focused Documented by User: Nitin Carty DO 08/20/19 06:33 HPI - Back Pain/Injury General: Chief Complaint: Back Pain/Injury Stated Complaint: back pain Time Seen by Provider: 08/17/19 15:11 Source: patient and family Mode of arrival: ambulatory Limitations: altered mental status (per spouse pt started acting confused after morphine) History of Present Illness: HPI Narrative: 74 yo female presents with back pain. per spouse pt started acting confused after she took morphine for back pain. pt has cancer. pt has had increased pain with movement. pt states she fell this morning and hit her head, and she now has head pain. spouse states he was unsure when that happened. Patient recently had an MRI there is a questionable area concerning for infection reviewed from old records. MD elicited complaint: back pain Pertinent past history: prior back pain Timing: constant and progressively worsening Severity: similar to previous episodes Location: left flank and left lower back Radiation: none Exacerbating factors: movement Relieving factors: none Context: fall (hit head) Associated symptoms: Reports other (back pain, sore throat, burning with urination ); Deny abdominal pain, chills, difficulty walking, dysuria, fatigue, fever(s), hematuria, nausea, syncope, urinary urgency or vomiting Treatments prior to arrival: other (Morphine) Work related injury: No Review of Systems General: Reports: 10 or more systems reviewed and unremarkable except in HPI and below Const: Denies: fever, chills, body aches, fatigue, malaise or night sweats Eyes: Denies: change in vision or blurry vision ENMT: Reports: throat pain Card: Denies: chest pain, palpitations, irregular heart rhythm, edema, syncope, shortness of breath on exertion, shortness of breath when lying down or leg pain with exertion Resp: Denies: shortness of breath, productive cough, non-productive cough or wheezing GI: Denies: abdominal pain, nausea, vomiting, vomiting blood, coffee grounds in vomit, difficulty swallowing, heartburn/indigestion, diarrhea, constipation, cramping, blood in stool or black tarry stool : Denies: flank pain, painful urination, urinary frequency, urinary urgency, urinary incontinence or blood in urine Musc: Reports: back pain Skin/Breast: Denies: rash, itching or redness Neuro: Denies: headache, numbness in extremities, weakness in extremities, changes in sensation, lack of coordination, difficulty walking, frequent falls, dizziness, vertigo or confusion Psych: Denies: anxiety, depression, loss of interest, visual hallucinations, auditory hallucinations, suicidal ideation or homicidal ideation Endo: Denies: excessive urination, excessive thirst, tired all the time or cold intolerance Jordi/Lymph: Denies: easy bruising, easy bleeding, petechiae, enlarged lymph nodes or tender lymph nodes PFSH ED PFSH: Statuses (acute, chronic, etc) shown below reflect problem list status a s previously entered and may not be historically accurate Medical History (Updated 08/18/19 @ 03:08 by Lulú Maier MD) History of breast cancer (Acute) History of colon cancer (Acute) Social History Smoking and tobacco status: never smoked Physical Exam Const: COMMON NORMALS: average body habitus GENERAL APPEARANCE: cooperative, comfortable, well kempt and well developed NUTRITIONAL APPEARANCE: obese HENMT: COMMON NORMALS: normocephalic, head/scalp atraumatic, EAC's normal, TM's normal bilaterally, external nose normal, moist oral mucous membranes and oropharynx normal HEAD & SCALP: normocephalic and atraumatic NOSE: external nose normal EXTERNAL AUDITORY CANAL: EAC's normal TYMPANIC MEMBRANE: TM's normal bilaterally MOUTH: oral and palatal mucosa normal, lip normal and tongue normal THROAT: posterior oropharynx normal and tonsils normal Eye: COMMON NORMALS: PERRL, EOMs intact bilaterally, conjunctivae normal and no scleral icterus CONJUNCTIVA: Yes conjunctivae normal PUPIL: Yes PERRL Neck/C-Spine: COMMON NORMALS: full ROM, no lymphadenopathy, supple, no meningeal signs and thyroid normal THYROID: thyroid normal and asymmetrical Lymph: LYMPHATIC: no lymphadenopathy noted Resp: COMMON NORMALS: normal respiratory effort, no retractions, no use of accessory muscles and clear to auscultation bilaterally AUSCULTATION: clear to auscultation bilaterally Cardio: COMMON NORMALS: regular rate and regular rhythm RATE: regular rate RHYTHM: regular rhythm HEART SOUNDS: no murmurs GI: COMMON NORMALS: normal to inspection, nondistended, normoactive bowel sounds, soft to palpation and no hepatosplenomegaly PALPATION: Yes soft and Yes no hepatosplenomegaly : COMMON NORMALS: Yes no CVA tenderness BLADDER/KIDNEY EXAM: Yes no CVA tenderness Back/Pelvis: COMMON NORMALS: no CVA tenderness LUMBAR SPINE/LOWER BACK: Yes normal to inspection Extremity: COMMON NORMALS: no clubbing, cyanosis or edema, no calf tenderness and no pedal edema Neuro: MENINGEAL SIGNS: Yes no meningeal signs Psych: APPEARANCE: Yes well kempt Skin: COMMON NORMALS: no rashes or lesions noted and skin turgor normal GENERAL SKIN EXAM: no rashes or lesions noted and turgor normal Course ED course: Care of patient transferred to Dr. Maier at change of shift. MRI is pending given CRP and previous MRI findings strongly suspect a infectious discitis. Possible osteomyelitis. Vital Signs: Vital signs: Vital Signs Temperature 98.3 F 08/17/19 15:11 Pulse Rate 68 08/18/19 03:40 Respiratory Rate 16 08/18/19 03:40 Blood Pressure 111/58 08/18/19 03:40 Pulse Oximetry 93 08/18/19 03:40 MDM - Back Pain/Injury Medical Records: Medical records narrative: [address] [address] XRay Report Signed Patient: Nikky Bañuelos AUnjorge #: [id number] : 7Acct#:[id number] Age/Sex: 74 / FADM Date: 08/17/19 Loc: ERRoom/Bed: Attending Dr: Ordering Provider/Ordering MD: Nitin Carty DO Date of Service: 08/17/19 Procedure(s): XR chest 1V portable [id number] Accession Number(s): [id number] Report Number: [id number] WS: [id number] Portable AP upright chest, 08/17/2019 Clinical Data: dyspnea/cough Comparison: PA and lateral chest, 02/14/2018. Findings: No nodules, masses or effusions are seen. The heart is normal. The pulmonary vascularity is not increased. No pneumonia or pneumothorax is seen. Clips in the right axilla from surgery. The patient's clothing obscures minimal detail over the mediastinum. The aortic arch and descending aorta are minimally tortuous. XR/XR chest 1V portable [id number] Impression: Atherosclerosis. Dictated By:Samantha Adler MD Signed By:Samantha Adlerigned Date/Time:08/17/19 1610 Lab Data: Labs: Lab Results 08/17/19 08/17/19 08/17/19 Range/Units 15:15 15:29 15:29 WBC 11.5 H (4.0-10.0) 10^3/ uL RBC 3.54 L (4.1-5.3) 10^6/u L Hgb 9.4 L (11.5-15.3) g/dL Hct 30.3 L (37.0-47.0) % MCV 85.6 (81-99) fL MCH 26.6 L (28.0-34.0) pg MCHC 31.0 (30.0-36.0) g/dL RDW 20.6 H (12.1-15.1) % Plt Count 79 L (130-400) 10^3/c mm MPV 10.5 H (7.4-10.4) fL Neut % (Auto) 20.7 % Lymph % (Auto) 23.3 % [place] % (Auto) 53.7 % Eos % (Auto) 0.2 % Baso % (Auto) 0.5 % Neut # (Auto) 2.4 (1.8-7.7) 10^3/u L Lymph # (Auto) 2.7 (0.8-4.8) 10^3/u L [place] # (Auto) 6.2 H (0.2-0.9) 10^3/u L Eos # (Auto) 0.0 (0.0-0.8) 10^3/u L Baso # (Auto) 0.1 (0.0-0.1) 10^3/u L Nucleated RBC % (a uto) 1.4 % Total Counted 100 (0-100) Atypical Lymphs % 7.0 H (0-5) % Segmented Neutroph ils 25 % Band Neutrophils 6.0 % Absolute Lymphocyt es 5.9 H (1.2-3.4) 10^3/c mm Lymphocytes (Manua l) 44 % Monocytes (Manual) 17.0 % Absolute Monocytes 2.0 H (0.1-0.6) 10^3/c mm Eosinophils (Manua l) 1 % Absolute Eosinophi ls 0.1 (0.0-0.7) 10^3/c mm Nucleated RBCs 3.0 H (0-1) /100WBC Nucleated RBCs # 0.2 /100WBC Platelet Estimate Decreased L (Normal) Polychromasia Trace Poikilocytosis 1+ H Anisocytosis 2+ H Spherocytes Trace Tear Drop Cells Trace Ovalocytes 1+ H Specimen Type Sample Site ABG pH (7.35-7.45) ABG pCO2 (35-45) mmHg ABG pO2 (80.0-100.0) mmH g ABG HCO3 (22-26) mmol/L ABG O2 Saturation ABG Base Excess (-2.0-2.0) mmol/ L Saw Test A-a O2 Gradient (5-10) mmHg Hematocrit (37-47) % Hgb O2 Saturation (95-100) % Carboxyhemoglobin (0.4-20.1) %THgb Methemoglobin (0.4-1.5) % Total Hemoglobin (12-16) g/dL Ionized Calcium (1.1-1.4) mmol/L O2 Delivery Device FiO2 % Rosin Barrel Filler ID Sodium 127 L (136-145) mmol/L Potassium 3.5 (3.5-5.1) mmol/L Chloride 93 L (98-107) mmol/L Carbon Dioxide 19 L (22-29) mmol/L Anion Gap 18.5 (5-19) BUN 73 H (8-23) mg/dL Creatinine 3.8 H (0.5-0.9) mg/dL Glucose 144 H (65-115) mg/dL Lactic Acid (Sepsi s) (0.5-2.2) mmol/L Calcium 9.4 (8.5-10.5) mg/dL Total Bilirubin 0.7 (0.15-1.2) mg/dL AST 13 (0-32) U/L ALT 30 (0-33) U/L Alkaline Phosphata se 133 H (35-105) IU/L C-Reactive Protein 379.3 H (0.0-4.9) mg/L Total Protein 7.2 (6.6-8.7) g/dL Albumin 3.2 L (3.5-5.2) g/dL Globulin 4.0 (1.3-4.6) g/dL Urine Opiates Scre en Positive H (Negative) ng/mL Ur Barbiturates Sc reen Negative (Negative) ng/mL Ur Phencyclidine S crn Negative (Negative) ng/mL Ur Amphetamines Sc reen Negative (Negative) ng/mL U Benzodiazepines Scrn Negative (Negative) ng/mL Urine Cocaine Scre en Negative (Negative) ng/mL U Marijuana (THC) Screen Negative (Negative) ng/mL 08/17/19 08/17/19 Range/Units 17:15 21:56 WBC (4.0-10.0) 10^3/ uL RBC (4.1-5.3) 10^6/u L Hgb (11.5-15.3) g/dL Hct (37.0-47.0) % MCV (81-99) fL MCH (28.0-34.0) pg MCHC (30.0-36.0) g/dL RDW (12.1-15.1) % Plt Count (130-400) 10^3/c mm MPV (7.4-10.4) fL Neut % (Auto) % Lymph % (Auto) % [place] % (Auto) % Eos % (Auto) % Baso % (Auto) % Neut # (Auto) (1.8-7.7) 10^3/u L Lymph # (Auto) (0.8-4.8) 10^3/u L [place] # (Auto) (0.2-0.9) 10^3/u L Eos # (Auto) (0.0-0.8) 10^3/u L Baso # (Auto) (0.0-0.1) 10^3/u L Nucleated RBC % (a uto) % Total Counted (0-100) Atypical Lymphs % (0-5) % Segmented Neutroph ils % Band Neutrophils % Absolute Lymphocyt es (1.2-3.4) 10^3/c mm Lymphocytes (Manua l) % Monocytes (Manual) % Absolute Monocytes (0.1-0.6) 10^3/c mm Eosinophils (Manua l) % Absolute Eosinophi ls (0.0-0.7) 10^3/c mm Nucleated RBCs (0-1) /100WBC Nucleated RBCs # /100WBC Platelet Estimate (Normal) Polychromasia Poikilocytosis Anisocytosis Spherocytes Tear Drop Cells Ovalocytes Specimen Type Arterial Sample Site Radial, left ABG pH 7.39 (7.35-7.45) ABG pCO2 31.9 L (35-45) mmHg ABG pO2 73.7 L (80.0-100.0) mmH g ABG HCO3 19.4 L (22-26) mmol/L ABG O2 Saturation 95.9 ABG Base Excess -4.7 L (-2.0-2.0) mmol/ L Saw Test Pos A-a O2 Gradient 35.0 H (5-10) mmHg Hematocrit 33.6 L (37-47) % Hgb O2 Saturation 93.7 L (95-100) % Carboxyhemoglobin 0.8 (0.4-20.1) %THgb Methemoglobin 1.5 (0.4-1.5) % Total Hemoglobin 11.0 L (12-16) g/dL Ionized Calcium 1.2 (1.1-1.4) mmol/L O2 Delivery Device None FiO2 21.0 % Rosin Barrel Filler ID glc Sodium 133.0 (136-145) mmol/L Potassium 3.6 (3.5-5.1) mmol/L Chloride (98-107) mmol/L Carbon Dioxide (22-29) mmol/L Anion Gap (5-19) BUN (8-23) mg/dL Creatinine (0.5-0.9) mg/dL Glucose 127.0 H (65-115) mg/dL Lactic Acid (Sepsi s) 0.7 (0.5-2.2) mmol/L Calcium (8.5-10.5) mg/dL Total Bilirubin (0.15-1.2) mg/dL AST (0-32) U/L ALT (0-33) U/L Alkaline Phosphata se (35-105) IU/L C-Reactive Protein (0.0-4.9) mg/L Total Protein (6.6-8.7) g/dL Albumin (3.5-5.2) g/dL Globulin (1.3-4.6) g/dL Urine Opiates Scre en (Negative) ng/mL Ur Barbiturates Sc reen (Negative) ng/mL Ur Phencyclidine S crn (Negative) ng/mL Ur Amphetamines Sc reen (Negative) ng/mL U Benzodiazepines Scrn (Negative) ng/mL Urine Cocaine Scre en (Negative) ng/mL U Marijuana (THC) Screen (Negative) ng/mL Discharge Plan Discharge Patient Disposition: Xfer Other Clinical Impression: Acute kidney injury, Discitis of lumbar region Condition: Stable Referrals: Saeed Currie MD [Primary Care Provider] - Discharge Date/Time: 08/18/19 03:41 Coding Level of Care Code ED Pattern Vault Clerk for Chg Fwd Exam Problem Focused The documentation recorded by the Corey morris Bridget Annette, accurately reflects the service I personally performed and the decisions made by , Nitin Carty, Aug 17, 2019 13:03
--- NOTE | 2019-08-17 15:37 | XR_ITS ---
WS: [id number] Portable AP upright chest, 08/17/2019 Clinical Data: dyspnea/cough Comparison: PA and lateral chest, 02/14/2018. Findings: No nodules, masses or effusions are seen. The heart is normal. The pulmonary vascularity is not increased. No pneumonia or pneumothorax is seen. Clips in the right axilla from surgery. The pat ient's clothing obscures minimal detail over the mediastinum. The aortic arch and descending aorta ar e minimally tortuous. XR/XR chest 1V portable [id number] Impression: Atherosclerosis.
--- NOTE | 2019-08-17 15:37 | CTR_ITS ---
PROCEDURE INFORMATION: Exam: CT Head Without Contrast Exam date and time: 08/17/2019 4:46 PM Age: 74 years old Clinical indication: Altered mental status/memory loss; Confusion or disorientation; Additional info: Fall/ams TECHNIQUE: Imaging protocol: Computed tomography of the head without contrast. Total DLP: 798.32 mGy-cm Radiation optimization: All CT scans at this facility use at least one of these dose optimization techniques: automated exposure control; mA and/or kV adjustment per patient size (includes targeted exams where dose is matched to clinical indication); or iterative reconstruction. COMPARISON: No relevant prior studies available. FINDINGS: Brain: Normal. No hemorrhage. Unremarkable white matter. No mass effect. Ventricles: Normal. No ventriculomegaly. Bones/joints: Unremarkable. No acute fracture. Sinuses: There is mild mucosal thickening in the sinuses. No air-fluid levels. Mastoid air cells: The left mastoid air cells are clear. There is mild patchy opacification inferior aspect of the right mastoid air cells. Soft tissues: Unremarkable. CT/CT head wo con* [id number] IMPRESSION: 1. The left mastoid air cells are clear. There is mild patchy opacification inferior aspect of the right mastoid air cells. 2. No acute intracranial abnormality is identified. Radiation Dose CTDIVOL = (mGy): DLP = 798.32 (mGy-cm)
[2019-08-17 15:38] LABS: Basophils # 0.1 10^3/uL (0.0-0.1); Basophils % 0.5 %; Eosinophils % 0.2 %; Hematocrit 30.3 % (37.0-47.0); Hemoglobin 9.4 g/dL (11.5-15.3); Lymphocytes # 2.7 10^3/uL (0.8-4.8); Lymphocytes % 23.3 %; Mean Corpuscular Hemoglobin 26.6 pg (28.0-34.0); Mean Corpuscular Volume 85.6 fL (81-99); Monocytes # 6.2 10^3/uL (0.2-0.9); Monocytes % 53.7 %; Neutrophils # 2.4 10^3/uL (1.8-7.7); Neutrophils % 20.7 %; Nucleated Red Blood Cells # 0.2 /100WBC; Nucleated Red Blood Cells % 1.4 %; Red Blood Count 3.54 10^6/uL (4.1-5.3); Red Cell Distribution Width 20.6 % (12.1-15.1); White Blood Count 11.5 10^3/uL (4.0-10.0)
[2019-08-17 15:51] LABS: Alanine Aminotransferase 30 U/L (0-33); Albumin Level 3.2 g/dL (3.5-5.2); Alkaline Phosphatase 133 IU/L (35-105); Anion Gap 18.5 (5-19); Aspartate Amino Transferase 13 U/L (0-32); Blood Urea Nitrogen 73 mg/dL (8-23); Calcium 9.4 mg/dL (8.5-10.5); Carbon Dioxide 19 mmol/L (22-29); Chloride 93 mmol/L (98-107); Glucose 144 mg/dL (65-115); Potassium 3.5 mmol/L (3.5-5.1); Sodium 127 mmol/L (136-145); Total Bilirubin 0.7 mg/dL (0.15-1.2); Total Protein 7.2 g/dL (6.6-8.7)
[2019-08-17 15:54] LABS: Mean Platelet Volume 10.5 fL (7.4-10.4)
[2019-08-17 15:56] LABS: Platelet Count 79 10^3/cmm (130-400)
[2019-08-17 15:59] LABS: Anisocytosis 2+; Ovalocytes 1+; Platelet Estimate Decreased (Normal); Poikilocytosis 1+; Polychromasia Trace; Spherocytes Trace
[2019-08-17 16:00] LABS: Tear Drop Cells Trace
[2019-08-17 16:04] LABS: Absolute Eosinophils 0.1 10^3/cmm (0.0-0.7); Absolute Segmented Neutrophil 2.8 10/cmm (1.6-7.1); Band Neutrophils Absolute 0.7 10^3/cmm (0.0-1.2); Eosinophils 1 %; Segmented Neutrophils 25 %; Total Cells Counted 100 (0-100)
[2019-08-17 16:05] LABS: Lymphocytes Absolute 5.9 10^3/cmm (1.2-3.4)
[2019-08-17 16:06] LABS: Lymphocytes 44 %
[2019-08-17 16:10] LABS: C Reactive Protein 379.3 mg/L (0.0-4.9)
[2019-08-17 16:26] LABS: Amphetamines Screen Urine Negative (Negative); Barbiturates Screen Urine Negative (Negative); Benzodiazepines Screen Urine Negative (Negative); Cocaine Screen Urine Negative (Negative); PCP Screen Urine Negative (Negative); THC Screen Urine Negative (Negative)
--- NOTE | 2019-08-17 16:37 | US_ITS ---
WS: [id number] Bilateral renal ultrasound, 08/17/2019 Clinical Data: acute renal failure Comparison: None. Findings: The right kidney measures 4.26 cm x 4.5 cm x 10.05 cm and the left kidney is 4.83 cm x 4.95 cm x 10.2 5 cm. There are no cysts, masses or hydronephrosis. The renal cortical margin is normal. No renal hillary culi are seen. The abdominal aorta and inferior vena cava show no vascular abnormalities. The bladder was scanned and was not remarkable. US/US renal BI with bladder Impression: Negative bilateral renal ultrasound.
--- NOTE | 2019-08-17 16:44 | MRR_ITS ---
PROCEDURE INFORMATION: Exam: MR Lumbar Spine With Contrast. Exam date and time: 08/17/2019 6:30 PM Age: 74 years old Clinical indication: Pain; Other: Muscle spasms; Patient HX: Lbp started 2 weeks ago. PT had mri lumbar wo & w contrast 08/14/2019. 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 Contrast material: PROHANCE; Contrast volume: 13 ml; Contrast route: IV; COMPARISON: MR lumbar spine wo/w con [id number] 08/14/2019 10:22 AM FINDINGS: Vertebrae: Chronic appearing fracture of T12 is noted unchanged since the prior exam. Bone marrow signal is very heterogeneous compatible degenerative endplate signal abnormalities and exaggerated hematopoietic marrow signal. There is some edema and enhancement of the inferior endplate of L1, L2 vertebral body and the superior endplate of L3 but these are also the levels with the most severe disc degenerative changes with marked endplate bony remodeling in this is favored to be degenerative signal abnormalities rather than infection. There is marked disc space narrowing at L1-L2 with endplate edema and enhancement unchanged in appearance compared to the prior exam compatible with probable degenerative signal abnormalities. No enhancing disc. No new fracture. No new bony destruction such is new/progressive osteomyelitis of the vertebral bodies. There is marked edema and abnormal enhancement of the left L2-L3 facet joint. There is abnormal bone signal intensity and abundant edema and enhancement of the facet joint, ligamentum flavum and the adjacent paraspinal muscles concerning for infected left facet joint. There is a small fluid collection in the left paraspinal muscles series 6, image 11 concerning for synovial cyst with adjacent abundant reaction/granulation tissue or a small abscess measuring 1.7 by 0.6 cm in size. Spinal cord: The conus ends at the level of T12-L1 and is unremarkable in appearance. L1-L2: At L1-L2, there is moderate circumferential disc bulging and facet hypertrophy. Signal in the disc space is noted compatible degenerative abnormalities. There is mild narrowing of the central canal and moderate left foraminal narrowing. L2-L3: At L2-L3, moderate central canal stenosis and mild narrowing of the foramina is noted due to bony proliferative changes and facet hypertrophy. L3-L4: At L3-L4 there is moderate disc bulge with mild central canal stenosis accentuated by facet and ligamentum flavum hypertrophy. There is severe narrowing of the right foramina. L4-L5: At L4-L5, there is moderate disc bulge with moderate foraminal narrowing and facet and ligamentum flavum hypertrophy. L5-S1: At L5-S1, there is mild narrowing of the central canal and foramina. No critical disc bulge or protrusion. Soft tissues: Abnormal paraspinal muscles immediately posterior to the abnormal left L2-L3 facet joint. MR/MR lumbar spine w con [id number] IMPRESSION: 1. Unchanged markedly abnormal signal involving the left facet joint at L2-L3 with marked bony signal abnormalities and marked edema and enhancement in the adjacent paraspinal soft tissues concerning for infected left facet joint with adjacent unchanged reactive myositis. There is abnormal enhancement of the ligamentum flavum concerning for infection. No discitis or new fracture. No osteomyelitis of the vertebral bodies. Small paraspinal muscle fluid collection may reflect a small abscess versus synovial cysts surrounded by infection/reactive change. 2. No epidural fluid collection/epidural abscess is identified. 3. Unchanged severe degenerative changes in the spine with multiple levels of disc bulging and facet arthropathy.
[2019-08-17] MEDS: sodium chloride 0.9% 1,000 ML 999 ML IV ×3 (16:49→22:00)
--- NOTE | 2019-08-17 16:50 | PC.NURSE ---
US and RT at bedside
[2019-08-17 16:53] LABS: Opiate Screen Urine Positive (Negative)
[2019-08-17 17:22] LABS: ABG PCO2 31.9 mmHg (35-45); ABG PH Result 7.39 (7.35-7.45); Arterial Blood Gas Hematocrit 33.6 % (37-47); Base Excess ABG -4.7 mmol/L (-2.0-2.0); Blood Gas Allen Test Pos; Blood Gas Operator Identificat glc; Blood Gas Sample Site Radial, left; Blood Gas Sample Type Arterial; Carboxyhemoglobin 0.8 %THgb (0.4-20.1); HCO3 ABG 19.4 mmol/L (22-26); HGB O2 Sat 93.7 % (95-100); Ionized Calcium Level - ABG 1.2 mmol/L (1.1-1.4); Methemoglobin 1.5 % (0.4-1.5); Oxygen Saturation ABG 95.9; PO2 ABG 73.7 mmHg (80.0-100.0); Potassium Level - ABG 3.6 mmol/L (3.5-5.0)
[2019-08-17] MEDS: morphine 4 mg/mL SDV 1 mL IVP (18:04)
--- NOTE | 2019-08-17 18:12 | PC.NURSE ---
Pt to MRI
--- NOTE | 2019-08-17 19:49 | PC.NURSE ---
pt returned from MRI by ambulance
[2019-08-17 22:27] LABS: Lactic Acid level (Lactate) 0.7 mmol/L (0.5-2.2)
[2019-08-17] MEDS: vancomycin 1,000 MG in sodium chloride 0.9% 250 ML 250 MG IV ×2 (22:45→23:12)
[2019-08-18] VITALS (14 sets, daily range): BP systolic 94–111; BP diastolic 51–59; PULSE 68; RESP 16; O2SAT 93
[2019-08-18] MEDS: sodium chloride 0.9% 1,000 ML 125 ML IV (02:02)
[2019-08-18] MEDS: morphine 4 mg/mL SDV 1 mL IVP ×2 (02:02→03:38)
== END 2019-08-18 03:41 | disposition other institution (70) ==
PROVIDERS: Family Medicine; Emergency Provider Emergency Medicine; Family Provider Family Medicine; PCP Family Medicine
DX: M46.46 Discitis, unspecified, lumbar region (principal); N17.9 Acute kidney failure, unspecified; Z85.3 Personal history of malignant neoplasm of breast; Z85.038 Personal history of other malignant neoplasm of large intestine
CPT/HCPCS: 36415; 36600; 70450; 71045; 72149; 76770; 76857; 80051; 80053; 80307; 82810; 83605; 83986; 85007; 85025; 86140; 87040; 96360; 96361; 96365; 96375; 96376; 99284; 99285; A9270; A9579; J2270; J3370; J7030; J7050